=== PATIENT | female | born 1955 | race Two or more races ===

== ENCOUNTER 2018-08-12 14:17 | Outpatient (CLI) | payer OTHER | END 2018-08-12 14:31 | disposition home or self-care (01) | LOC: NUCLEAR 14:17 | DX: M81.0 Age-related osteoporosis without current pathological fracture (principal) ==

== ENCOUNTER → 2021-02-22 | Outpatient (CLI) | payer OTHER | END | disposition home or self-care (01) | LOC: NUCLEAR 02-16 14:30 | PROVIDERS: ATTEND Internal Medicine Endocrinology, Diabetes & Metabolism | DX: M81.0 Age-related osteoporosis without current pathological fracture (principal); M83.2 Adult osteomalacia due to malabsorption ==

== ENCOUNTER 2023-09-26 13:10 | Outpatient (CLI) | payer OTHER | END 2023-09-26 13:11 | disposition home or self-care (01) | LOC: NUCLEAR 13:10 | DX: M81.0 Age-related osteoporosis without current pathological fracture (principal); M83.2 Adult osteomalacia due to malabsorption; I87.2 Venous insufficiency (chronic) (peripheral); R73.01 Impaired fasting glucose; J45.909 Unspecified asthma, uncomplicated ==

== ENCOUNTER 2025-03-02 13:29 | Outpatient (CLI) | payer OTHER | END 2025-03-02 13:32 | disposition home or self-care (01) | LOC: NUCLEAR 13:29 | PROVIDERS: ATTEND Internal Medicine Cardiovascular Disease | DX: M81.0 Age-related osteoporosis without current pathological fracture (principal) ==